=== PATIENT | male | born 1945 | race Hispanic/Latino ===

== ENCOUNTER 2024-04-11 11:29 | Emergency (ER) | payer SELFPAY ==
[2024-04-11] MEDS ORDERED: Tetracaine 0.5% PF 4 ML BOT ONE (11:52)
[2024-04-11] MEDS ORDERED: Fluorescein Opthalmic Strip ONE (11:52)
== END 2024-04-11 12:15 | disposition home or self-care (01) ==
LOC: NAV ERS 11:29
DX: S05.02XA Injury of conjunctiva and corneal abrasion without foreign body, left eye, initial encounter (principal); I10 Essential (primary) hypertension; Z87.891 Personal history of nicotine dependence; W45.8XXA Other foreign body or object entering through skin, initial encounter
CPT/HCPCS: 99283